=== PATIENT | female | born 1985 | race African-American/Black ===

== ENCOUNTER 2023-08-29 18:06 | Emergency (ER) | payer SELFPAY ==
[2023-08-29 18:08] VITALS: BP 156/71; PULSE 93; RESP 20; TEMP 36.4; O2SAT 100
--- NOTE | 2023-08-29 18:12 | ECG_ITS ---
[facility] [address] Test Date: 2023-08-29 Pat Name: Tab Zhao Department: Room: Gender: F Security And Compliance Analyst: : 1985 Requested By: Tyler Degroot Order Number: [id number] MD: Abdifatah Alcantar D.O. Measurements Intervals [place] Rate: 80 P: 57 KS: 164 QRS: 47 QRSD: 84 T: 49 QT: 342 QTc: 395 Interpretive Statements SINUS RHYTHM BASELINE ARTIFACT- I, II, AVR, AVL, V1-V2 NORMAL ECG No previous ECG available for comparison Electronically Signed On 08-29-2023 21:31:44 CDT by Abdifatah Alcantar D.O.
--- NOTE | 2023-08-29 18:58 | ED.GENADULT ---
HPI - General Adult General Chief complaint: Extremity Injury, Upper Stated complaint: left arm pain Time Seen by Provider: 08/29/23 18:44 Source: patient Mode of arrival: ambulatory Limitations: no limitations History of Present Illness HPI narrative: This is a 38-year-old female who presents to the ED with chief complaint of left arm pressure x1 week. Denies any trauma or injury to the shoulder or arm. States the pain radiates from the shoulder down to the forearm. States the pain is constant. It is worse with certain movements. She works at [employer] and states that the pain has been worse while at work. No chest pain reported. Denies shortness of breath, dizziness, syncope, diaphoresis, nausea, vomiting, abdominal pain, numbness, weakness, neck pain. Related Data Allergies Allergy/AdvReac Type Severity Reaction Status Date / Time No Known Allergies Allergy Verified 08/29/23 18:12 Review of Systems Review of Systems: All systems as dictated in HPI Exam Narrative: GENERAL: Well-appearing, well-nourished, and in no acute distress. HEAD: Normocephalic, atraumatic. EYES: PERRLA and EOMI. ENT: Nares clear, no rhinorrhea or epistaxis. Mucous membranes moist. Oropharynx without tonsillar hypertrophy exudate or other lesions. NECK: Supple. No adenopathy or masses. CHEST: No respiratory distress. Clear to auscultation. No wheezes rales or rhonchi HEART: Regular rate and rhythm. No murmur heard. Normal peripheral pulses. ABDOMEN: Soft, nontender, nondistended, normal active bowel sounds. MSK: Normal range of motion. No edema. SKIN: Warm, dry, no rash. NEURO: Alert and oriented x3. No focal deficits. PSYCH: Normal mood and affect. Course Vital Signs Vital signs: Vital Signs Temperature 97.5 F L 08/29/23 18:08 Pulse Rate 93 08/29/23 18:08 Respiratory Rate 20 08/29/23 18:08 Blood Pressure 156/71 H 08/29/23 18:08 Pulse Oximetry 100 08/29/23 18:08 Oxygen Delivery Room Air 08/29/23 18:08 Temperature 97.5 F L 08/29/23 18:08 Pulse Rate 88 08/29/23 19:19 Respiratory Rate 15 08/29/23 19:19 Blood Pressure 146/82 H 08/29/23 19:19 Pulse Oximetry 100 08/29/23 19:19 Oxygen Delivery Room Air 08/29/23 18:08 Medical Decision Making [facility] Narrative Medical decision making narrative: This is a 38-year-old female who presents to the ED with chief complaint of left arm pressure for the past week. Worse with certain movements. Seems musculoskeletal in nature. Vitals are normal. Exam remarkable for the above. EKG shows normal sinus rhythm with no acute ischemic findings. Shared decision making regarding further workup. Offered further labs such as troponin to assess for ACS, but informed the patient that I feel ACS is very unlikely for her. She would like to go home and try to take Advil for her arm pain. She will come back to the ER if things worsen. Pt will be discharged in stable condition. Return precautions given and supportive measures discussed. Pt is understanding and agreeable with plan for discharge and follow-up with PCP. Vital Signs Vital Signs: Vital Signs Temperature 97.5 F L 08/29/23 18:08 Pulse Rate 93 08/29/23 18:08 Respiratory Rate 20 08/29/23 18:08 Blood Pressure 156/71 H 08/29/23 18:08 Pulse Oximetry 100 08/29/23 18:08 Oxygen Delivery Room Air 08/29/23 18:08 Temperature 97.5 F L 08/29/23 18:08 Pulse Rate 88 08/29/23 19:19 Respiratory Rate 15 08/29/23 19:19 Blood Pressure 146/82 H 08/29/23 19:19 Pulse Oximetry 100 08/29/23 19:19 Oxygen Delivery Room Air 08/29/23 18:08 ECG Data EKG #1: ECG completion date: 08/29/23 ECG completion time: 18:47 Prior ECG tracings: available for review Interpretation: Sinus rhythm Rate 80 Normal QTC Normal QRS No acute ischemic findings Discharge Plan Discharge Clinical Impression: Arm pain, left Patient Disposition: Home, Self-Care
[2023-08-29 19:19] VITALS: BP 146/82; PULSE 88; RESP 15; O2SAT 100
== END 2023-08-29 19:21 | disposition home or self-care (01) ==
PROVIDERS: Emergency Provider Physician Assistant
DX: M79.602 Pain in left arm (principal)
CPT/HCPCS: 93005; 99283